=== PATIENT | female | born 1945 | race Caucasian/White ===

== ENCOUNTER → 2018-08-04 | Outpatient (RCR) | payer MEDICARE | LOC: PT 07-13 13:51 | PROVIDERS: ATTEND Specialist | DX: S83.402A Sprain of unspecified collateral ligament of left knee, initial encounter (principal); M17.12 Unilateral primary osteoarthritis, left knee; M25.562 Pain in left knee; M25.662 Stiffness of left knee, not elsewhere classified; M62.81 Muscle weakness (generalized); R26.9 Unspecified abnormalities of gait and mobility; R26.89 Other abnormalities of gait and mobility; R26.81 Unsteadiness on feet | CPT/HCPCS: 97110 ×9; 97162; G8978 ×2; G8979 ×2 ==

== ENCOUNTER 2018-09-01 09:00 | Outpatient (RCR) | payer MEDICARE | END 2018-09-04 | LOC: PT 09:00 | PROVIDERS: ATTEND Specialist | DX: S83.402A Sprain of unspecified collateral ligament of left knee, initial encounter (principal); M17.12 Unilateral primary osteoarthritis, left knee; M25.562 Pain in left knee; M62.81 Muscle weakness (generalized); R26.9 Unspecified abnormalities of gait and mobility ==

== ENCOUNTER 2018-09-08 09:00 | Outpatient (RCR) | payer MEDICARE | END 2018-10-05 | LOC: PT 09:00 | PROVIDERS: ATTEND Specialist | DX: S83.402A Sprain of unspecified collateral ligament of left knee, initial encounter (principal); M17.12 Unilateral primary osteoarthritis, left knee; M25.562 Pain in left knee; M62.81 Muscle weakness (generalized); R26.9 Unspecified abnormalities of gait and mobility; R26.89 Other abnormalities of gait and mobility | CPT/HCPCS: 97110 ×2; G8978; G8979 ==

== ENCOUNTER → 2023-03-02 | Outpatient (CLI) | payer MEDICARE | LOC: MRI 09:35 | PROVIDERS: ATTEND Internal Medicine | DX: M50.30 Other cervical disc degeneration, unspecified cervical region (principal); M54.12 Radiculopathy, cervical region | CPT/HCPCS: 72141 ==

== ENCOUNTER 2023-12-19 09:00 | Outpatient (RCR) | payer MEDICARE ==
[~2023-12-19 09:00] MED LIST: BENICAR20 MG PO; BIOTIN1 MG; CELEBREX200 MG PO; CYCLOBENZAPRINE10 MG PO; ESTRADIOL1 MG PO; FLONASE ALLERG9.9 ML INH; LEVOTHYROXINE75 MCG PO; LYRICA75 MG PO; OMEPRAZOLE40 MG PO; OXYBUTYNIN CHLOR5 M1 PO; VITAMIN B-121000 MCG PO; VITMAIN; ZYRTEC10 MG
== END 2024-01-03 ==
LOC: PT 09:00
PROVIDERS: ATTEND Physician Assistant
DX: Z47.1 Aftercare following joint replacement surgery (principal); Z96.651 Presence of right artificial knee joint; M25.561 Pain in right knee; M25.661 Stiffness of right knee, not elsewhere classified; M62.81 Muscle weakness (generalized); R26.2 Difficulty in walking, not elsewhere classified

== ENCOUNTER → 2024-01-18 | Day surgery (SDC) | payer MEDICARE ==
[2024-01-17 10:09] LABS: BASOPHILS % 0.6 % (0.0-1.0); EOSINOPHILS # (AUTO) 0.1 (0.0-0.4); EOSINOPHILS % 1.6 % (0.0-6.0); HEMATOCRIT 38.7 % (34.2-44.1); LYMPHOCYTES # (AUTO) 1.6 (1.0-3.2); LYMPHOCYTES % 30.7 % (18.0-39.1); MEAN CORPUSCULAR HEMOGLOBIN 31.6 pg (28-32); MEAN CORPUSCULAR HGB CONC 33.6 g/dL (31-35); MEAN CORPUSCULAR VOLUME 93.9 fL (81-99); MONOCYTES # (AUTO) 0.4 (0.2-0.8); MONOCYTES % 7.3 % (4.4-11.3); NEUTROPHILS % 59.6 % (38.7-80.0); PLATELET COUNT 220 x10e3/uL (140-360); RED BLOOD COUNT 4.12 x10e6/uL (3.6-5.1); WHITE BLOOD COUNT 5.05 x10e3/uL (4.8-10.8)
[2024-01-17 11:00] LABS: ALBUMIN 3.6 g/dL (3.5-5.0); ANION GAP 14.9 mmol/L (8-16); BILIRUBIN,TOTAL 0.8 mg/dL (0.2-1.2); CALCIUM 8.9 mg/dL (8.4-10.2); CREATININE, SERUM 0.79 mg/dL (0.57-1.11); POTASSIUM 3.9 mmol/L (3.5-5.1); TOTAL PROTEIN 7.1 g/dL (6.5-8.1)
[~2024-01-18] MED LIST changes: +ACETAMINOPHEN 1000 MG/100 ML IV ONE; +BUPIVACAINE 0.25% 30ML SDV ONE; +DEXAMETHASONE SOD PHOS INJ 4 MG/ML SDV ONE; +FENTANYL CITRATE/PF 100MCG/2 ML INJ ONE; +HYDROCODONE/APAP 7.5MG-325MG 1 EA TAB ONE; +LIDOCAINE HCL 2% LOCAL INJ 5 ML SDV VIAL INJ ONE; +METOCLOPRAMIDE HCL 10 MG/2ML VIAL ONE; +ONDANSETRON HCL INJ 2MG/ML 2ML 2 MG/ML VIAL ONE; +PROPOFOL IV EMULSION 10 MG/ML 20 ML VIAL ONE; +ROCURONIUM BROMIDE 10 MG/ML 5ML VIAL IV ONE; +SEVOFLURANE INHAL SOLN 250 ML PEN BTL ONE; +SUGAMMADEX SODIUM 200 MG/2 ML VIAL IV ONE
[2024-01-18] MEDS: LACTATED RINGER'S 1,000 ML ONE (09:34)
[2024-01-18] MEDS: FENTANYL CITRATE/PF 100MCG/2 ML INJ ONE (14:49)
[2024-01-18] MEDS: ONDANSETRON HCL INJ 2MG/ML 2ML 2 MG/ML VIAL ONE (14:49)
[2024-01-18 15:45] VITALS: TEMP 97.7
[2024-01-18] MEDS: METOCLOPRAMIDE HCL 10 MG/2ML VIAL IV ONE (15:56)
[2024-01-18] MEDS: HYDROCODONE/APAP 7.5MG-325MG 1 EA TAB PO ONE (16:10)
[2024-01-18 16:30] VITALS: BP 158/92; PULSE 78; RESP 16; O2SAT 98
== END | disposition home or self-care (01) ==
LOC: OR 09:21
PROVIDERS: ATTEND Surgery
DX: K80.10 Calculus of gallbladder with chronic cholecystitis without obstruction (principal); I10 Essential (primary) hypertension; I83.90 Asymptomatic varicose veins of unspecified lower extremity; K21.9 Gastro-esophageal reflux disease without esophagitis; K58.9 Irritable bowel syndrome, unspecified; E03.9 Hypothyroidism, unspecified; M54.2 Cervicalgia; Z01.810 Encounter for preprocedural cardiovascular examination; Z01.812 Encounter for preprocedural laboratory examination; Z01.818 Encounter for other preprocedural examination; Z79.899 Other long term (current) drug therapy
CPT/HCPCS: 36415; 47562; 71046; 80053; 85025; 88304; 93005; C1766; J0131; J1100; J2001; J2405; J2704; J2765; J3010; J7121

== ENCOUNTER → 2025-04-19 | Day surgery (SDC) | payer MEDICARE ==
[2025-04-17 15:10] LABS: BASOPHILS % 0.4 % (0.0-1.0); EOSINOPHILS % 1.8 % (0.0-6.0); LYMPHOCYTES % 28.2 % (18.0-39.1); MONOCYTES % 6.9 % (4.4-11.3); NEUTROPHILS % 62.4 % (38.7-80.0); RED CELL DISTRIBUTION WIDTH 13.2 % (11.7-14.4)
[~2025-04-19] MED LIST changes: -ACETAMINOPHEN 1000 MG/100 ML IV ONE; -BUPIVACAINE 0.25% 30ML SDV ONE; -DEXAMETHASONE SOD PHOS INJ 4 MG/ML SDV ONE; +FAMOTIDINE 20 MG/2 ML VIAL IV ONE; +GABAPENTIN300 MG PO; +GLYCOPYRROLATE INJ 0.2 MG/ML VIAL ONE; +HYDROCHLOROTHIA25 MG PO; -HYDROCODONE/APAP 7.5MG-325MG 1 EA TAB ONE; +HYOSCYAMINE SULFATE 0.5 MG/ML INJ ONE; -ONDANSETRON HCL INJ 2MG/ML 2ML 2 MG/ML VIAL ONE; -PROPOFOL IV EMULSION 10 MG/ML 20 ML VIAL ONE; +PROPOFOL IV EMULSION 50 ML IV ONE; +RESTASIS1 EACH OP/OT; -ROCURONIUM BROMIDE 10 MG/ML 5ML VIAL IV ONE; -SEVOFLURANE INHAL SOLN 250 ML PEN BTL ONE; -SUGAMMADEX SODIUM 200 MG/2 ML VIAL IV ONE; +VITAMIN D325 MCG PEG; -ZYRTEC10 MG; +ZYRTEC10 MG PO
[2025-04-19] MEDS: LACTATED RINGER'S 1,000 ML ONE (11:34)
[2025-04-19 12:39] VITALS: TEMP 97.1
[2025-04-19 13:00] VITALS: BP 148/84; PULSE 88; RESP 18; O2SAT 100
[2025-04-19 13:21] LABS: CDIFF AG QUIK CHEK NEGATIVE (NEGATIVE)
[2025-04-19 13:22] LABS: CDIFF TOX QUIK CHEK NEGATIVE (NEGATIVE)
== END | disposition home or self-care (01) ==
LOC: OR 10:28
PROVIDERS: ATTEND Internal Medicine Gastroenterology
DX: K29.80 Duodenitis without bleeding (principal); K29.50 Unspecified chronic gastritis without bleeding; K44.9 Diaphragmatic hernia without obstruction or gangrene; K21.00 Gastro-esophageal reflux disease with esophagitis, without bleeding; K31.7 Polyp of stomach and duodenum; D12.3 Benign neoplasm of transverse colon; K63.5 Polyp of colon; K52.9 Noninfective gastroenteritis and colitis, unspecified; K64.8 Other hemorrhoids; I10 Essential (primary) hypertension; G62.9 Polyneuropathy, unspecified; E66.812 Obesity, class 2; E03.9 Hypothyroidism, unspecified; Z68.35 Body mass index [BMI] 35.0-35.9, adult; Z90.49 Acquired absence of other specified parts of digestive tract; Z79.1 Long term (current) use of non-steroidal anti-inflammatories (NSAID); Z79.890 Hormone replacement therapy; Z79.899 Other long term (current) drug therapy; Z01.810 Encounter for preprocedural cardiovascular examination; Z01.812 Encounter for preprocedural laboratory examination
CPT/HCPCS: 36415; 43239; 43251; 45385; 83630; 83993; 85025; 87045; 87177; 87324; 87328; 87449; 88305; 88342; 93005; J1308; J1980; J2003; J2470; J2704; J2765; J3010; J7121; 45378; 45380

== ENCOUNTER → 2025-05-03 | Outpatient (REF) | payer MEDICARE ==
[~2025-05-03] MED LIST changes: +DIATRIZOATE MEGL/DIATRIZOA SOD 30 ML BTL PO ONE; -FAMOTIDINE 20 MG/2 ML VIAL IV ONE; -FENTANYL CITRATE/PF 100MCG/2 ML INJ ONE; -GLYCOPYRROLATE INJ 0.2 MG/ML VIAL ONE; -HYOSCYAMINE SULFATE 0.5 MG/ML INJ ONE; +IOPAMIDOL 370 MG/ML 100 ML INFUS..BTL INJ ONE; -LIDOCAINE HCL 2% LOCAL INJ 5 ML SDV VIAL INJ ONE; -METOCLOPRAMIDE HCL 10 MG/2ML VIAL ONE; -PROPOFOL IV EMULSION 50 ML IV ONE
[2025-05-03 14:43] LABS: EST GLOMERULAR FILTRATION RATE 79.0 ML/MIN (>=60)
== END ==
LOC: CT 13:32
PROVIDERS: ATTEND Nurse Practitioner
DX: R19.7 Diarrhea, unspecified (principal)
CPT/HCPCS: 36415; 74177; 82565; 84520; Q9963; Q9967